=== PATIENT | female | born 1980 | race Caucasian/White ===

== ENCOUNTER 2017-02-19 13:15 | Emergency (ER) | payer MEDICAID ==
[~2017-02-19] VITALS: Ht 157.5 cm; Wt 88.0 kg
[2017-02-19 17:13] LABS: BASOPHIL % 0.7 % (0-2); PLATELET COUNT 256 x10^3mcL (130-400)
[2017-02-19 17:14] LABS: RED CELL DISTRIBUTION WIDTH 14.6 % (11.5-14.5)
[2017-02-19 17:19] LABS: CALCIUM 9.1 mg/dL (8.5-10.1); CARBON DIOXIDE 28.2 mmol/L (21-32); CHLORIDE SERUM 106 mmol/L (98-107); CREATININE SERUM 0.6 mg/dL (0.6-1.0); GFR1 > 60 mL/min; GLUCOSE SERUM 100 mg/dL (74-106); POTASSIUM SERUM 3.8 mmol/L (3.5-5.1); SODIUM SERUM 142 mmol/L (136-145)
[2017-02-19 17:32] LABS: ALBUMIN 3.8 g/dL (3.4-5.0); ALKALINE PHOSPHATASE 51 U/L (46-116); ALT/SGPT 24 U/L (14-59); AST/SGOT 12 U/L (15-37); BILIRUBIN TOTAL 0.6 mg/dL (0.20-1.00); T4(THYROXINE) 9.9 ug/dL (4.7-13.3)
[2017-02-19 17:33] LABS: TOTAL PROTEIN, SERUM 8.4 g/dL (6.4-8.2)
[2017-02-19 18:34] VITALS: BP 126/85
== END 2017-02-19 19:00 | disposition home or self-care (01) ==
LOC: ED 13:15
PROVIDERS: Emergency Medicine
DX: R53.1 Weakness (principal); R51 Headache
CPT/HCPCS: 36415; 82962; Q0092